=== PATIENT | male | born 1970 | race Caucasian/White ===

== ENCOUNTER 2020-10-12 22:03 | Inpatient (IN) | payer OTHER ==
[~2020-10-12] VITALS: Ht 180.3 cm; Wt 79.4 kg
[~2020-10-12 22:03] MED LIST: ASPIR 8181 MG PO; LISINOPRIL2.5 MG PO; METOPROLOL SUCC25 M1 PO; OMEPRAZOLE20 M2 PO; PRAVASTATIN SOD40 M1 PO
[2020-10-12 22:21] VITALS: Ht 180.3 cm; Wt 79.4 kg
[2020-10-12 23:34] LABS: CALCIUM 8.7 mg/dL (8.5-10.1); CARBON DIOXIDE 24.7 mmol/L (21-32); CHLORIDE SERUM 100 mmol/L (98-107); CREATININE SERUM 1.1 mg/dL (0.7-1.3); GFR1 > 60 mL/min; GLUCOSE SERUM 265 mg/dL (74-106); POTASSIUM SERUM 4.1 mmol/L (3.5-5.1); SODIUM SERUM 134 mmol/L (136-145)
[2020-10-12 23:38] LABS: ALBUMIN 4.2 g/dL (3.4-5.0); ALKALINE PHOSPHATASE 102 U/L (46-116); ALT/SGPT 69 U/L (16-63); AST/SGOT 23 U/L (15-37); TOTAL PROTEIN, SERUM 7.6 g/dL (6.4-8.2)
[2020-10-12 23:40] LABS: BASOPHIL % 0.2 % (0.2-1.5); PLATELET COUNT 288 x10^3mcL (152-348); RED CELL DISTRIBUTION WIDTH 13.2 % (12.1-16.2)
--- NOTE | 2020-10-13 01:04 | NUR ---
PT PLACED IN ROOM 2A
[2020-10-13] MEDS ORDERED: ZESTRIL5 MG PO (01:38)
[2020-10-13] MEDS ORDERED: FORTAMET1000 MG PO (01:39)
[2020-10-13] MEDS ORDERED: ATORVASTATIN CA40 M1 PO ×2 (01:40→14:30)
--- NOTE | 2020-10-13 01:47 | NUR ---
PT PRESENTED TO ED WITH C/C OF ATYPICAL CHEST PAIN, 5/10 PRESSURE LIKE PAIN. PAIN NON RADIATING. DENIES N/V/BLURRED VISION/GALLEGOS/SOB. PT IS A&OX4 WITH E/U BREATHS, NO ACD NOTED. PT PLACED IN GOWN ON FULL CM. MEDICATED WITH ASA PER MD ORDER. SEE EMAR. PT TOLERATED PO MED WELL.
[2020-10-13 02:36] LABS: microscopic required? NO
[2020-10-13 02:41] LABS: CHOLESTEROL/HDL RATIO 4.2
[2020-10-13 02:43] LABS: UA SPECIFIC GRAVITY >=1.030 (1.005-1.035); urine erythrocyte NEGATIVE (NEGATIVE)
--- NOTE | 2020-10-13 02:50 | NUR ---
PT IN POC IN SEMI DUDLEY POSITION. IV LINE STARTED ON LEFT FA, LINE PATENT, NO INFILTRATION NOTED. CALL LIGHT WITHIN REACH.
[2020-10-13 02:54] LABS: AMPHETAMINE QUAL UR NONE DETECTED (See below)
--- NOTE | 2020-10-13 04:01 | NUR ---
PT NOTED IN POC LOW FOWLERS WITH EYES CLOSED. PT EASILY AROUSED UPON MY ENTERING THE ROOM. NO CHANGE IN PATIENT'S CONDITION, WILL CONTINUE TO MONITOR PATIENT.
[2020-10-13 05:04] LABS: BASOPHIL % 0.3 % (0.2-1.5); PLATELET COUNT 254 x10^3mcL (152-348); RED CELL DISTRIBUTION WIDTH 13.2 % (12.1-16.2)
[2020-10-13 05:07] LABS: CALCIUM 8.6 mg/dL (8.5-10.1); CARBON DIOXIDE 25.2 mmol/L (21-32); CHLORIDE SERUM 101 mmol/L (98-107); CREATININE SERUM 1.1 mg/dL (0.7-1.3); GFR1 > 60 mL/min; GLUCOSE SERUM 247 mg/dL (74-106); POTASSIUM SERUM 4.3 mmol/L (3.5-5.1); SODIUM SERUM 136 mmol/L (136-145)
--- NOTE | 2020-10-13 06:48 | NUR ---
PT A&OX4 SITTING NOTED USING CELL PHONE. PT GIVEN 6U HUMULIN R INSULIN FOR 240 BLOOD SUGAR.
--- NOTE | 2020-10-13 07:09 | NUR ---
PT LAYING IN BED IN POSITION OF COMFORT USING PERSONAL CELLPHONE, PT AAO TO PERSON, PLACE, TIME, AND PURPOSE, VITAL SIGNS STABLE, IN NO ACUTE DISTRESS AT THIS TIME, PT DENIES SOB, CP, N/V/D, BED IN LOW POSITION AND LOCKED, RIGHT SIDE RAIL UP, CALL LIGHT WITHIN REACH, ON FULL SUPERVISOR PRE WAVE, PT REPORTS BEING HUNGRY, WILL CHECK DIET ORDER
--- NOTE | 2020-10-13 07:16 | NUR ---
RECEIVED REPORT FROM EVON CORADO, ASSUMING CARE OF PT AT THIS TIME
--- NOTE | 2020-10-13 07:17 | NUR ---
LEFT MESSAGE FOR DR. MCNALLY REGARDING PO PROTONIX 40mg ORDER, PHARMACY DOES NOT CARRY THIS MEDICATION, REQUESTED ROUTE CHANGE TO IV OR DIFFERENT PO MEDICATION
--- NOTE | 2020-10-13 07:40 | NUR ---
PT SITTING IN BED EATING BREAKFAST
--- NOTE | 2020-10-13 08:58 | NUR ---
PT MEDICATED PER MD ORDER, SEE eMAR, PT TOLERATED WITHOUT ANY INCIDENTS, PT AMBULATED TO RESTROOM WITH STEADY GAIT AND BALANCE.
--- NOTE | 2020-10-13 09:00 | NUR ---
PT RETURNED FROM RESTROOM, LAYING IN BED IN POSITIN OF COMFORT.
--- NOTE | 2020-10-13 11:00 | NUR ---
REPORT GIVEN TO GIL CORADO
[2020-10-13 14:19] VITALS: BP 125/84
[2020-10-13] MEDS ORDERED: NIT0.4 SL (14:31)
[2020-10-13 16:00] VITALS: BP 139/97
--- NOTE | 2020-10-13 17:40 | NUR ---
patient ok to dc per resident. konstantin amaya RN
== END 2020-10-13 18:41 | disposition home or self-care (01) | DRG 392 ==
LOC: ED 22:03 → DU 10-13 01:11
PROVIDERS: ADMIT Family Medicine; ATTEND Family Medicine
DX: K21.9 Gastro-esophageal reflux disease without esophagitis (principal); E87.1 Hypo-osmolality and hyponatremia; I10 Essential (primary) hypertension; E78.5 Hyperlipidemia, unspecified; I25.2 Old myocardial infarction; Z20.822 Contact with and (suspected) exposure to COVID-19; D72.829 Elevated white blood cell count, unspecified; E11.65 Type 2 diabetes mellitus with hyperglycemia; Z79.82 Long term (current) use of aspirin; Z79.84 Long term (current) use of oral hypoglycemic drugs; Z82.3 Family history of stroke; Z80.3 Family history of malignant neoplasm of breast; E80.6 Other disorders of bilirubin metabolism; Z95.5 Presence of coronary angioplasty implant and graft; I25.10 Atherosclerotic heart disease of native coronary artery without angina pectoris
CPT/HCPCS: 82962; C9113; G0378; J7030; U0003